=== PATIENT | female | born 1970 | race Caucasian/White ===

== ENCOUNTER 2018-08-01 10:57 | Day surgery (SDC) | payer BC ==
[~2018-08-01] VITALS: Ht 162.6 cm; Wt 60.3 kg
[~2018-08-01 10:57] MED LIST: AMBI5TAB PO; LR 1,000 ML IV ONE
[2018-08-01] MEDS ORDERED: LIDOCAINE 2% INJ 100 MG/5 ML SDV (FOR ANES.) As Ordered ONE (11:00)
[2018-08-01] MEDS ORDERED: MIDAZOLAM INJ 2 MG/2 ML VIAL (J2250) As Ordered ONE (11:00)
[2018-08-01] MEDS ORDERED: fentaNYL 100 MCG/2 ML INJECTION (J3010) As Ordered ONE (11:00)
[2018-08-01] MEDS ORDERED: PROPOFOL 200 MG/20 ML VIAL As Ordered ONE (11:00)
[2018-08-01 12:02] LABS: HCG, SERUM QUALITATIVE NEGATIVE (NEGATIVE)
[2018-08-01] MEDS ORDERED: ONDANSETRON 4MG/2ML VIAL (J2405) As Ordered ONE (12:13)
[2018-08-01] MEDS ORDERED: dexameTHASONE 4 MG/ML 1ML VIAL (J1100) As Ordered ONE ×2 (12:14→12:20)
[2018-08-01] MEDS ORDERED: LIDOCAINE PRES-FREE 2% 10ML AMP As Ordered ONE (12:19)
[2018-08-01] MEDS ORDERED: BUPIVACAINE HCL 0.5% 10 ML VIAL As Ordered ONE (12:19)
[2018-08-01] MEDS ORDERED: BACITRACIN PWD 50,000 UNITS VIAL As Ordered ONE (12:20)
[2018-08-01] MEDS ORDERED: LIDOCAINE 2% MDV 20 ML VIAL As Ordered ONE (12:22)
[2018-08-01] MEDS ORDERED: NEOSPORIN GU IRRIG 20 ML VIAL As Ordered ONE (12:23)
[2018-08-01] MEDS ORDERED: ePHEDrine SULFATE 25 MG/5 ML(5MG/ML) SYRINGE As Ordered ONE (12:38)
[2018-08-01] MEDS ORDERED: KETOROLAC 60 MG/2 ML VIAL (J1885) As Ordered ONE (12:48)
[2018-08-01] MEDS ORDERED: PERCOCET 5MG/325MG TAB PO PRN (14:15)
[2018-08-01] MEDS ORDERED: ONDANSETRON 4MG/2ML VIAL (J2405) IV PRN (14:15)
[2018-08-01] MEDS ORDERED: METOCLOPRAMIDE INJ 10MG/2ML VIAL (J2765) IV PRN (14:15)
[2018-08-01] MEDS ORDERED: fentaNYL 100 MCG/2 ML INJECTION (J3010) IV PRN (14:15)
[2018-08-01] MEDS ORDERED: LR 1,000 ML IV SCH (14:15)
[2018-08-01 14:30] VITALS: BP 96/50
--- NOTE | 2018-08-02 10:18 | RO ---
DATE OF PROCEDURE: 08/01/2018 PREPROCEDURE DIAGNOSES: Plantar fasciitis right foot. POSTPROCEDURE DIAGNOSES: Plantar fasciitis right foot. PROCEDURE: SURGEON: Dr. Tyler Abreu DPM DURABLE MEDICAL EQUIPMENT TECHNICIAN: None. IRRIGATION: Dilute bacitracin, neomycin and polymyxin B solution. HEMOSTASIS: Ankle pneumatic tourniquet at 200 mmHg for 9 minutes. DESCRIPTION OF OPERATION: On 08/01/2018, this 48-year-old white female was taken from her hospital room to the operating room and placed on the operating room table in the supine position. Following the induction of IV sedation and local and regional anesthesia, the right lower extremity was prepped and draped in the usual aseptic manner. Attention was directed to the medial surface of the patient's right foot where a small 5 mm vertical incision was placed on the medial aspect of the foot. Dissection was then carried down inferior to the plantar fascia and utilizing a right endoscopic plantar fasciotomy blade directed in superior direction, the plantar fascia was then directly visualized on entry of the scope. Three-quarters of the plantar fascia was then transected under direct visualization until the flexor digitorum brevis muscle was identified. The scope with endoscopic blade was then removed. The wound was flushed with copious amounts of dilute bacitracin, neomycin and polymyxin B solution. Closure was obtained with deeply with #4-0 Vicryl in a simple interrupted type fashion. Skin incision was coapted and maintained utilizing #4-0 Prolene in a simple interrupted and horizontal mattress type fashion. Following the completion of the surgical procedure, 4 mg of Dexamethasone sodium phosphatase was instilled proximal to the surgical site. Attention was directed toward bandaging where a sterile compression bandage was applied consisting of Adaptic, 4x4, 4x4 splint, Kerlix, and Coban. The ankle pneumatic tourniquet was then rapidly deflated and instantaneous capillary filling time was noted to digits of one through five of the patient's right foot. The patient having apparently tolerated the surgical procedure well was taken from the operating room (OR) to the recovery room for further monitoring by the anesthesia department. Postoperative instructions given upon discharge.
== END 2018-08-01 14:50 | disposition home or self-care (01) ==
LOC: M SDC 10:57
PROVIDERS: ATTEND Podiatrist
DX: M72.2 Plantar fascial fibromatosis (principal); Z79.899 Other long term (current) drug therapy
CPT/HCPCS: 29893; 36415; 84703; 97116; J0690; J1100; J1885; J2250; J2405; J3010